=== PATIENT | male | born 1965 | race Caucasian/White ===

== ENCOUNTER 2025-04-23 12:35 | Inpatient (IN) | payer OTHER ==
[2025-04-23 13:42] VITALS: BMI 27.0
[2025-04-23] MEDS ORDERED: MAGNESIUM HYDROX 2400MG/30ML ORAL SUSPENSION 30 ML CUP PO PRN (13:48)
[2025-04-23] MEDS ORDERED: IBUPROFEN 400 MG TABLET (FP) PO PRN (13:48)
[2025-04-23] MEDS ORDERED: BENZOCAINE/MENTHOL (CHLORASEPTIC ) LOZENGE MM PRN (13:48)
[2025-04-23] MEDS ORDERED: ACETAMINOPHEN 325 MG TABLET (FP) PO PRN (13:48)
[2025-04-23] MEDS ORDERED: BENZONATATE 200 MG CAPSULE PO PRN (13:48)
[2025-04-23] MEDS ORDERED: NALOXONE (NARCAN) HCL 4 MG/0.1 ML SPRAY NS PRN (13:48)
[2025-04-23] MEDS ORDERED: hydrOXYzine PAMOATE 25 MG CAPSULE (FP) PO PRN (13:48)
[2025-04-23] MEDS ORDERED: guaiFENesin 600 MG TABLET.ER (FP) PO PRN (13:48)
[2025-04-23] MEDS ORDERED: POLYETHYLENE GLYCOL (HEALTHYLAX) 3350 17 GM PACKET PO PRN (13:48)
[2025-04-23] MEDS ORDERED: BISMUTH SUBSALICYLATE 524 MG/30 ML PO PRN (13:48)
[2025-04-23] MEDS ORDERED: ONDANSETRON *ODT* 4 MG TABLET SL PRN (13:48)
[2025-04-23] MEDS ORDERED: LOPERAMIDE HCL 2 MG CAPSULE PO PRN (13:48)
[2025-04-23] MEDS ORDERED: DICYCLOMINE HCL 10 MG CAPSULE PO PRN (13:48)
[2025-04-23] MEDS ORDERED: PRENATAL VITAMINS W/ FOLIC ACID TABLET (FP) PO ONE (16:41)
[2025-04-23] MEDS ORDERED: NICOTINE 14 MG/24 HOURS TOPICAL PATCH TD ONE (16:41)
[2025-04-23] MEDS: PRENATAL VITAMINS W/ FOLIC ACID TABLET (FP) PO SCH (16:42)
[2025-04-23] MEDS: NICOTINE 14 MG/24 HOURS TOPICAL PATCH TD SCH (16:42)
[2025-04-23] MEDS: NICOTINE POLACRILEX 2 MG GUM BUC PRN (18:04)
[2025-04-23] MEDS: THIAMINE 100 MG TABLET PO SCH (22:15)
[2025-04-23] MEDS: MELATONIN 5 MG TABLETS PO SCH (22:15)
[2025-04-23] MEDS: IBUPROFEN 600 MG TABLET (FP) PO PRN (22:17)
[2025-04-24] MEDS: METHOCARBAMOL 500 MG TABLET PO PRN (10:14)
[2025-04-24 10:38] LABS: MCHC 32.5 g/dl (32.3-36.5); MEAN CELL VOLUME 103.3 fl (79.0-92.2); MEAN PLT VOLUME 9.9 fl (9.4-12.4); RDW 12.1 % (12.2-16.4)
[2025-04-24 11:07] LABS: GLUCOSE,RANDOM 104.0 mg/dL (74-106); TOT PROT 7.3 g/dl (6.4-8.2)
[2025-04-24 11:08] LABS: CO2 20.0 mmol/L (21-32)
[2025-04-24 11:10] LABS: ALK PHOS 80.0 U/L (40-150)
[2025-04-24 11:12] LABS: SGPT/ALT 41.0 U/L (0-55)
[2025-04-24 11:13] LABS: CREATININE 1.14 mg/dL (0.55-1.3); SGOT/AST 52.0 U/L (5-34)
[2025-04-24] MEDS: MAG HYDROX/AL HYDROX/SIMETH 30 ML UNIT-DOSE CUP PO PRN (22:19)
[2025-04-25] MEDS: NALTREXONE HCL 50 MG TABLET PO SCH (17:27)
[2025-04-26 09:28] VITALS: BP 121/86; PULSE 85; RESP 16; TEMP 96.9
== END 2025-04-26 09:36 | disposition left against medical advice (07) | DRG 770 ==
LOC: YASAS 12:35 → Y6N 16:29
PROVIDERS: ADMIT Allergy & Immunology; ATTEND Counselor Addiction (Substance Use Disorder)
PROC: HZ2ZZZZ Detoxification Services for Substance Abuse Treatment (ICD-10-PCS; principal; 2025-04-23)
DX: F10.230 Alcohol dependence with withdrawal, uncomplicated (principal); F17.210 Nicotine dependence, cigarettes, uncomplicated; F41.1 Generalized anxiety disorder
CPT/HCPCS: 36415; 80053; 80307; 85027; 86780; 93005; 93010